=== PATIENT | male | born 1955 | race Hispanic/Latino ===

== ENCOUNTER 2022-03-02 06:54 | Day surgery (SDC) | payer OTHER ==
[2022-02-25 14:26] VITALS: BP 169/83
[2022-02-25 14:30] LABS: HEMATOCRIT 43.2 % (42-54); MEAN CORPUSCULAR HEMOGLOBIN 27.6 pg (27.0-33.0); MEAN CORPUSCULAR HGB CONC 31.9 g/dL (32.0-36.0); MEAN CORPUSCULAR VOLUME 86.4 fL (79-99); RED CELL DISTRIBUTION WIDTH 13.6 % (11.0-15.5); WHITE BLOOD COUNT (AUTO) 10.3 K/uL (4.8-10.8)
[2022-02-25 14:31] LABS: BASOPHILS % (AUTO) 0.4 % (0.0-5.0); EOSINOPHILS % (AUTO) 2.5 % (0.0-8.0); LYMPHOCYTES % (AUTO) 22.1 % (21.0-51.0); MONOCYTES % (AUTO) 9.3 % (3.0-13.0); NEUTROPHILS % (AUTO) 65.1 % (40.0-77.0); PLATELET COUNT (AUTO) 304 K/uL (130-400)
[2022-02-25 14:39] LABS: APPEARANCE,URINE CLEAR (CLEAR); BILIRUBIN,URINE NEGATIVE (NEGATIVE); COLOR,URINE YELLOW (YELLOW); GLUCOSE, URINE (UA) NEGATIVE (NEGATIVE); KETONES,URINE NEGATIVE (NEGATIVE); LEUKOCYTE ESTERASE ,URINE 250 Leu/uL (NEGATIVE); NITRATE,URINE 1+ (NEGATIVE); OCCULT BLOOD,URINE NEGATIVE (NEGATIVE); PH,URINE 5.5 (5.0-8.0); PROTEIN,URINE 30 mg/dL (NEGATIVE); UROBILINOGEN,URINE 0.2 mg/dL (0.2-1.0)
[2022-02-25 14:43] LABS: PROTHROMBIN TIME 10.9 SEC (9.6-11.6)
[2022-02-25 14:46] LABS: CREATININE 0.9 mg/dL (0.5-1.5); POTASSIUM 4.2 mmol/L (3.5-5.1)
[2022-02-25 14:54] LABS: BACTERIA,URINE MANY /HPF (None Seen); MUCUS,URINE RARE LPF (None Seen); SQUAMOUS EPITHELIAL CELL,UR FEW /HPF (0-2); WBC,URINE 26-50 /HPF (0-1)
[2022-02-25 15:00] LABS: B-TYPE NATRIURETIC PEPTIDE 51 pg/mL (0-100)
[~2022-03-02] VITALS: Ht 175.3 cm; Wt 144.8 kg
[2022-03-02] VITALS (9 sets, daily range): BP systolic 86–144; BP diastolic 39–74
[~2022-03-02 06:54] MED LIST: 0.9% NACL 500ML IV.SOLN 500 ML IV SCH; AEC81 PO; ATOR40TA69 PO; BUSP5TAB3 PO; DOXA2TAB2 PO; HYDR25TA PO; ISOS60TA77 PO; LOSA50TA64 PO; METO25TA6 PO; NITR0.4T50 SL
[2022-03-02] MEDS ORDERED: 0.9%NACL 1000ML 1,000 ML IV ONE (07:16)
[2022-03-02] MEDS ORDERED: NITROFURANTOIN MONOHYD/M-CRYST 100 MG CAPSULE PO SCH (08:30)
[2022-03-02] MEDS ORDERED: MIDAZOLAM HCL 1 MG/ML 2ML VIAL ONE (10:47)
[2022-03-02] MEDS ORDERED: IOHEXOL-350 50ML VIAL IV ONE (10:47)
[2022-03-02] MEDS ORDERED: NITROGLYCERIN 50MG VIAL ONE (10:47)
[2022-03-02] MEDS ORDERED: HEPARIN 10,000 UNIT/10ML (1,000 UNIT/ML) VIAL ONE ×2 (10:47→12:17)
[2022-03-02] MEDS ORDERED: LIDOCAINE HCL 1% 20 ML VIAL ONE (10:47)
[2022-03-02] MEDS ORDERED: NICARDIPINE 25MG INJ IV ONE (10:47)
[2022-03-02] MEDS ORDERED: IOHEXOL 350 MG/ML 100ML INFUS..BTL IV ONE ×2 (10:47→12:09)
[2022-03-02] MEDS ORDERED: FENTANYL CITRATE PF 50 MCG/1 ML 2ML VIAL ONE (10:47)
[2022-03-02] MEDS ORDERED: GLUCAGON 1MG KIT 1 MG ML IM PRN (13:30)
[2022-03-02] MEDS ORDERED: DEXTROSE 50%-WATER 50 ML DISP.SYRIN IV PRN (13:30)
== END 2022-03-02 15:35 | disposition home or self-care (01) ==
LOC: DAH 06:54
PROVIDERS: ATTEND Internal Medicine Cardiovascular Disease
DX: I25.119 Atherosclerotic heart disease of native coronary artery with unspecified angina pectoris (principal); I10 Essential (primary) hypertension; E78.5 Hyperlipidemia, unspecified; E66.9 Obesity, unspecified; E11.9 Type 2 diabetes mellitus without complications; I87.2 Venous insufficiency (chronic) (peripheral); Z79.01 Long term (current) use of anticoagulants; Z79.899 Other long term (current) drug therapy; Z98.890 Other specified postprocedural states; Z86.711 Personal history of pulmonary embolism; Z86.16 Personal history of COVID-19; Z87.01 Personal history of pneumonia (recurrent); Z82.49 Family history of ischemic heart disease and other diseases of the circulatory system; Z68.42 Body mass index [BMI] 45.0-49.9, adult
CPT/HCPCS: 80048; 83880; 85025; 85610; 85730; 87077; 87088; 87186; 81001; 36415; 71045; 93005; 93458; 93571; C1769 ×2; C1887; C1894 ×2; J3010; J7030; J3490 ×2; J1644 ×3; J2250; Q9967 ×2; A4215; A4222; A4221; A4663; A4216; A4606; Q9965 ×2; A4223 ×3; 99156; 99157

== ENCOUNTER → 2022-10-22 | Outpatient (CLI) | payer OTHER ==
[~2022-10-22] MED LIST changes: -0.9% NACL 500ML IV.SOLN 500 ML IV SCH; -DOXA2TAB2 PO; -ISOS60TA77 PO; -LOSA50TA64 PO
[2022-10-22 12:39] LABS: CREATININE 0.9 mg/dL (0.5-1.5); TOTAL PROTEIN, SERUM 7.7 g/dL (6.0-8.3)
== END | disposition home or self-care (01) ==
LOC: LAB 10:00
PROVIDERS: ATTEND Internal Medicine Cardiovascular Disease
DX: I87.2 Venous insufficiency (chronic) (peripheral) (principal); R06.00 Dyspnea, unspecified; R60.9 Edema, unspecified
CPT/HCPCS: 36415; 80053; 83735; 83880